=== PATIENT | male | born 1990 | race African-American/Black ===

== ENCOUNTER 2021-07-23 12:10 | Inpatient (IN) | payer MEDICAID ==
[~2021-07-23] VITALS: Ht 185.4 cm; Wt 77.1 kg
[2021-07-23] MEDS ORDERED: ONDANSETRON 4 MG/2 ML VIAL IV ONE ×2 (12:30→14:30)
[2021-07-23] MEDS ORDERED: ONDANSETRON 4 MG/2 ML VIAL ONE ×2 (12:34→14:33)
[2021-07-23 12:43] LABS: HEMATOCRIT 51.8 % (36.7-47.1); MEAN CORPUSCULAR HEMOGLOBIN 29.3 uug (23.8-33.4); MEAN CORPUSCULAR VOLUME 89.9 fL (73.0-96.2); PLATELET COUNT (AUTO) 429 K/uL (152-348)
--- NOTE | 2021-07-23 12:46 | NUR ---
Dr Newton at the bedside for MSE.
[2021-07-23 12:52] LABS: CREATININE 1.4 mg/dL (0.6-1.3); POTASSIUM 4.1 mmol/L (3.5-5.1)
[2021-07-23] MEDS: IV NS 1000 ML 1,000 ML IV PRN (12:58)
[2021-07-23 13:21] LABS: BILIRUBIN,DIRECT 0.2 mg/dL (0.0-0.2); BILIRUBIN,TOTAL 1.2 mg/dL (0.2-1.0); MAGNESIUM 2.3 mg/dL (1.8-2.4); PHOSPHOROUS 4.3 mg/dL (2.5-4.9); TOTAL PROTEIN, SERUM 8.5 g/dL (6.4-8.2)
[2021-07-23] MEDS ORDERED: INSU100V28 SQ (13:24)
[2021-07-23] MEDS ORDERED: IV NORMAL SALINE 1000 ML BAG IV ONE (14:00)
[2021-07-23] MEDS ORDERED: MISCELLANEOUS MED XX ONE (14:00)
[2021-07-23] MEDS ORDERED: INSULIN REGULAR, HUMAN 100 UNITS in IV NORMAL SALINE 100 ML IV ONE (14:15)
[2021-07-23 14:25] LABS: *BILIRUBIN,URIN NEGATIVE (NEGATIVE); *BLOOD, URINE NEGATIVE (NEGATIVE); *CLARITY,URINE CLEAR (CLEAR); *COLOR,URINE YELLOW (YELLOW); *KETONES,URINE 3+ (NEGATIVE); *UROBILINOGEN,URINE 0.2 E.U./dl (NORMAL); LEUKOCYTE ESTERASE ,URINE NEGATIVE (NEGATIVE); NITRITE, URINE NEGATIVE (NEGATIVE); UGLUCOSE 2+ (NEGATIVE)
[2021-07-23] MEDS ORDERED: HYDROMORPHONE 1 MG/1 ML DISP.SYRIN IV ONE (14:30)
[2021-07-23] MEDS ORDERED: HYDROMORPHONE 1 MG/1 ML DISP.SYRIN ONE (14:33)
--- NOTE | 2021-07-23 15:22 | NUR ---
Patient is resting comfortably in bed with eyes closed, NAD noted. Continue w/ NS and insulin drip per MD order.
--- NOTE | 2021-07-23 17:09 | NUR ---
Placed a call to [facility], and spoke to Tatyana, awaiting to call back.
[2021-07-23 17:12] LABS: CARBON DIOXIDE 30 mmol/L (21-32); CHLORIDE 104 mmol/L (98-107); CREATININE 0.8 mg/dL (0.6-1.3); UREA NITROGEN, BLOOD 24 mg/dL (7-18)
[2021-07-23 17:17] LABS: GLUCOSE 347 mg/dL (74-106)
--- NOTE | 2021-07-23 17:19 | NUR ---
Dr Newton spoke to Dr Nolasco from [place].
[2021-07-23 17:30] LABS: MAGNESIUM 2.1 mg/dL (1.8-2.4); PHOSPHOROUS 3.1 mg/dL (2.5-4.9)
--- NOTE | 2021-07-23 18:13 | NUR ---
Blood glucose 299, Per Dr Newton pt should remain on insulin drip at 2 U/Hr. Pt denies N/V and requested ice chips.
[2021-07-23 18:18] LABS: ABG HCO3 23.9 mmol/L; ABG PCO2 40.6 mmHg (35.0-45.0); ABG PH 7.388 (7.350-7.450); ABG PO2 77.7 mmHg (75.0-100.0); ABG SITE RIGHT RADIAL; ABG TOTAL HEMOGLOBIN 15.2 G/dL (13.5-18.0); COHb 0.8 % (0.5-1.5); MetHb 0.2 % (0.0-1.5); O2Hb 93.6 % (94.0-97.0); VENT MODE ROOM AIR
[2021-07-23] MEDS ORDERED: METOCLOPRAMIDE HCL 10 MG/2 ML VIAL IV ONE (19:30)
[2021-07-23] MEDS ORDERED: diphenhydrAMINE 50 MG/1 ML VIAL IV ONE (19:30)
[2021-07-23] MEDS ORDERED: PANTOPRAZOLE SODIUM 40 MG VIAL IV ONE (19:30)
[2021-07-23] MEDS ORDERED: diphenhydrAMINE 50 MG/1 ML VIAL ONE (19:47)
[2021-07-23] MEDS ORDERED: PANTOPRAZOLE SODIUM 40 MG VIAL ONE (19:47)
[2021-07-23] MEDS ORDERED: METOCLOPRAMIDE HCL 10 MG/2 ML VIAL ONE (19:47)
--- NOTE | 2021-07-23 19:54 | NUR ---
Per order from Dr. Plummer discontinue IV fluids.
--- NOTE | 2021-07-23 20:47 | NUR ---
pt taken for cat scan abdomen pelvis.
--- NOTE | 2021-07-23 21:09 | NUR ---
pt is back from cat scan.
--- NOTE | 2021-07-23 23:12 | NUR ---
pt denies pain, informed pt waiting regarding [facility] transfer.
[2021-07-24] MEDS ORDERED: MORPHINE SULFATE 4 MG/1 ML DISP.SYRIN IV ONE (03:15)
[2021-07-24] MEDS ORDERED: ONDANSETRON 4 MG/2 ML VIAL IV ONE (03:15)
--- NOTE | 2021-07-24 03:17 | NUR ---
Call to [facility] to check on status of transfer. I was informed of an authorization number [id number] for admission to [facility]. Informed Dr. Plummer if she would like me to call [facility], she states we will call at [phone].
[2021-07-24] MEDS ORDERED: ONDANSETRON 4 MG/2 ML VIAL ONE ×2 (03:35→08:54)
[2021-07-24] MEDS ORDERED: MORPHINE SULFATE 4 MG/1 ML DISP.SYRIN ONE (03:35)
[2021-07-24] MEDS: IV NS 1000 ML 1,000 ML IV PRN ×2 (04:12→04:13)
--- NOTE | 2021-07-24 04:52 | NUR ---
Call to [facility] licensing and registration director panel for Dr. Plummer.
[2021-07-24] MEDS ORDERED: IV NS 1000 ML 1,000 ML IV ONE (05:00)
[2021-07-24] MEDS ORDERED: INSULIN REGULAR, HUMAN 300 UNITS/3 ML VIAL SQ PRN (05:15)
[2021-07-24] MEDS ORDERED: INSULIN REGULAR, HUMAN 300 UNIT/3 ML VIAL SQ PRN (05:15)
[2021-07-24] MEDS ORDERED: DEXTROSE 50% 50 ML DISP.SYRIN IV PRN (05:15)
[2021-07-24] MEDS ORDERED: IV NS 1000 ML 1,000 ML IV PRN (05:15)
[2021-07-24] MEDS ORDERED: Z GUARD REMEDY PASTE 57 GM TUBE TOP PRN (05:15)
[2021-07-24] MEDS ORDERED: ONDANSETRON 4 MG/2 ML VIAL IV PRN (05:15)
[2021-07-24] MEDS ORDERED: ACETAMINOPHEN 325 MG TABLET PO PRN (05:15)
[2021-07-24] MEDS ORDERED: MAGNESIUM HYDROXIDE 30 ML LIQUID UDC PO PRN (05:15)
--- NOTE | 2021-07-24 05:32 | NUR ---
Clarified with Dr. Plummer she ordered NS at 100 per hour and RODRICK Tejeda ordered NS at [address] Plummer states to infuse NS at 75 ml per hour.
--- NOTE | 2021-07-24 06:47 | NUR ---
Report given to Frankie WEAVER.
[2021-07-24] MEDS ORDERED: PANTOPRAZOLE SODIUM 40 MG TABLET.DR PO SCH (07:00)
[2021-07-24] MEDS ORDERED: PANTOPRAZOLE SODIUM 40 MG TABLET.DR PO ONE (07:29)
[2021-07-24] MEDS ORDERED: BLOOD SUGAR DIAGNOSTIC 1 EACH STRIP VI SCH (07:30)
--- NOTE | 2021-07-24 07:31 | NUR ---
PT IS RESTING IN BED COMFORTABLY. NO S/S OF ACUTE DISTRESS AT THIS TIME. CONTINUE TO MONITOR THE PT.
[2021-07-24] MEDS ORDERED: INSULIN REGULAR, HUMAN 300 UNIT/3 ML VIAL ONE (08:37)
[2021-07-24] MEDS ORDERED: MAGNESIUM HYDROXIDE 30 ML LIQUID UDC ONE (08:54)
[2021-07-24] MEDS ORDERED: Insulin Glargine,Hum SQ (10:43)
--- NOTE | 2021-07-24 10:50 | NUR ---
PT WAS EVALUATED BY DR GARCÍA. PT WAS D/C'd TO HOME BY DR EVANS. D/C INSTRUCTIONS GIVEN TO THE PT BY DR GARCÍA.
[2021-07-24 11:00] VITALS: BP 135/85
[2021-07-24] MEDS ORDERED: INSULIN GLARGINE,HUM 300 UNITS/3 ML CARTRIDGE SQ SCH (21:00)
== END 2021-07-24 17:00 | disposition home or self-care (01) | DRG 420 ==
LOC: ER 12:10 → TRANSITION 07-24 06:45
PROVIDERS: ADMIT Nurse Practitioner Acute Care
DX: E11.10 Type 2 diabetes mellitus with ketoacidosis without coma (principal); N17.9 Acute kidney failure, unspecified; K86.89 Other specified diseases of pancreas; Z20.822 Contact with and (suspected) exposure to COVID-19; Z98.1 Arthrodesis status; Z79.4 Long term (current) use of insulin; Z90.49 Acquired absence of other specified parts of digestive tract; Z82.49 Family history of ischemic heart disease and other diseases of the circulatory system; R10.13 Epigastric pain; Z87.828 Personal history of other (healed) physical injury and trauma
CPT/HCPCS: 36415; 36600; 70030-TC; 71045; 83605; 83690; 83735; 84100; 85025; 85610; 85730; 87040; 87086; 93005; A4663; C9113; G0378; J1170; J1200; J1815; J2270; J2405; J2765; J3490; J7030; J7040; U0003

== ENCOUNTER 2025-04-06 16:03 | Emergency (ER) | payer MEDICAID ==
[~2025-04-06] VITALS: Ht 185.4 cm; Wt 59.0 kg
[2025-04-06 16:03] VITALS: BP 92/59
[~2025-04-06 16:03] MED LIST: INSU100V28 SQ; Insulin Glargine,Hum SQ
[2025-04-06 16:54] LABS: PLATELET COUNT (AUTO) 485 K/uL (152-348); RED BLOOD CELL COUNT(AUTO) 4.25 MIL/uL (4.06-5.63); RED CELL DISTRIBUTION WIDTH 17.3 % (12.1-16.2); WHITE BLOOD COUNT (AUTO) 6.1 K/uL (3.6-10.2)
[2025-04-06 16:56] LABS: *BILIRUBIN,URIN NEGATIVE (NEGATIVE); *BLOOD, URINE NEGATIVE (NEGATIVE); *CLARITY,URINE CLEAR (CLEAR); *COLOR,URINE LIGHT YELLOW (YELLOW); *KETONES,URINE NEGATIVE (NEGATIVE); *PROTEIN,URINE NEGATIVE (NEGATIVE); *UROBILINOGEN,URINE 0.2 E.U./dl (NORMAL); LEUKOCYTE ESTERASE ,URINE NEGATIVE (NEGATIVE); NITRITE, URINE NEGATIVE (NEGATIVE); UGLUCOSE 3+ (NEGATIVE)
[2025-04-06 17:09] LABS: ASPARTATE AMINOTRANSFERASE 30 U/L (15-37); CREATININE 0.5 mg/dL (0.6-1.3); SODIUM SERUM 135 mmol/L (136-145); TOTAL PROTEIN, SERUM 7.3 g/dL (6.4-8.2); UREA NITROGEN, BLOOD 10 mg/dL (7-18)
[2025-04-06] MEDS: IV NORMAL SALINE 1000 ML BAG IV ONE (17:10)
[2025-04-06 17:20] LABS: SQUAMOUS EPITHELIAL CELL,UR NONE SEEN /HPF (NONE SEEN)
[2025-04-06 17:23] LABS: ABG BASE EXCESS 4.5 mmol/L (-2.0-3.0); ABG HCO3 28.2 mmol/L (21.0-28.0); ABG PCO2 38.8 mmHg (35.0-48.0); ABG PH 7.480 (7.350-7.450); ABG PO2 82.6 mmHg (83.0-108.0); ABG SITE RIGHT RADIAL; ABG TOTAL HEMOGLOBIN 9.4 G/dL (13.5-17.5); AaDO2 96.8 mmHg; FIO2 21.0 %; FLOW, BLOOD GAS 0.00 L/min (0.00-30.00)
[2025-04-06] MEDS ORDERED: KETOROLAC TROMETHAMINE 15 MG INJ ONE (18:06)
[2025-04-06] MEDS: KETOROLAC TROMETHAMINE 15 MG INJ IVP ONE (18:08)
[2025-04-06] MEDS: INSULIN REGULAR, HUMAN 1000 UNIT/10 ML VIAL IV ONE ×2 (19:07→21:17)
[2025-04-06] MEDS: IV NS 1000 ML 1,000 ML IV ONE (21:15)
[2025-04-06 22:53] VITALS: BP 100/62; TEMP 98; O2SAT 99
== END 2025-04-06 22:53 | disposition home or self-care (01) ==
LOC: ER 16:03
DX: E11.65 Type 2 diabetes mellitus with hyperglycemia (principal); G89.29 Other chronic pain; I10 Essential (primary) hypertension; J44.9 Chronic obstructive pulmonary disease, unspecified; Z59.00 Homelessness unspecified; Z79.4 Long term (current) use of insulin; Z91.148 Patient's other noncompliance with medication regimen for other reason; R06.02 Shortness of breath; Z86.2 Personal history of diseases of the blood and blood-forming organs and certain disorders involving the immune mechanism
CPT/HCPCS: 36600; 71045; 83605; 84484; 85025; 85730; 87040; 87086; A4606; A4663; J1885; J7040